=== PATIENT | female | born 1990 | race Two or more races ===

== ENCOUNTER 2017-05-09 10:45 | Emergency (ER) | payer MEDICAID, OTHER ==
[~2017-05-09] VITALS: Ht 170.2 cm; Wt 59.9 kg
--- NOTE | 2017-05-09 11:27 | NUR ---
BIB MOTHER, C/O CP/SOB X 3 DAYS, NAD NOTED, VSS, RESP EVEN AND UNLABORED, PT PUT ON HOSPITAL GOWN AND MONITOR, WAITING FOR MD IWLSON.
[2017-05-09] MEDS ORDERED: ACETAMINOPHEN 325 MG TABLET PO STA (11:46)
[2017-05-09] MEDS ORDERED: ONDANSETRON 4 MG TAB.RAPDIS ONE (11:55)
[2017-05-09] MEDS ORDERED: ACETAMINOPHEN 325 MG TABLET ONE (11:55)
--- NOTE | 2017-05-09 11:59 | NUR ---
PT UNABLE TO SWALLOW THE TYLENOL, DUE TO FEELING NAUSEATED.
[2017-05-09] MEDS ORDERED: ONDANSETRON 4 MG TAB.RAPDIS SL ONE (12:00)
[2017-05-09] MEDS ORDERED: MAG HYDROX/AL HYDROX/SIMETH 30 ML UDC PO ONE (12:30)
[2017-05-09] MEDS ORDERED: LIDOCAINE VISCOUS 2% UD 15 ML UDC MM ONE ×2 (12:30→13:00)
[2017-05-09] MEDS ORDERED: LIDOCAINE VISCOUS 2% UD 15 ML UDC ONE (12:33)
[2017-05-09] MEDS ORDERED: MAGNESIUM HYDROXIDE 30 ML UDC ONE (12:34)
[2017-05-09] MEDS ORDERED: PANTOPRAZOLE 40 MG VIAL IV STA (12:43)
--- NOTE | 2017-05-09 12:45 | NUR ---
PT UNABLE TO KEEP THE LIDOVISCOUS AND MOM DOWN. MADE AWARE.
[2017-05-09] MEDS ORDERED: PANTOPRAZOLE 40 MG VIAL ONE (12:51)
[2017-05-09] MEDS ORDERED: ONDANSETRON HCL/PF 4 MG/2 ML VIAL ONE (12:51)
[2017-05-09] MEDS ORDERED: ONDANSETRON HCL/PF 4 MG/2 ML VIAL IV ONE (13:00)
[2017-05-09 13:21] LABS: BASOPHILS # (AUTO) 0.1 /CMM (0.0-0.2); BASOPHILS % (AUTO) 0.9 % (0.0-2.0); EOSINOPHILS % (AUTO) 0.2 % (0.0-6.0); HEMATOCRIT 44 % (33-45); HEMOGLOBIN 14.9 g/dL (11.5-14.8); LYMPHOCYTES # (AUTO) 2.2 /CMM (0.8-4.8); MEAN CORPUSCULAR HEMOGLOBIN 30 PG (26.0-33.0); MEAN CORPUSCULAR HGB CONC 34 g/dl (31.0-36.0); MEAN CORPUSCULAR VOLUME 87 fL (82-100); MONOCYTES # (AUTO) 0.3 /CMM (0.1-1.30); MONOCYTES % (AUTO) 2.9 % (2.0-12.0); NEUTROPHILS # (AUTO) 9.4 /CMM (1.8-8.9); PLATELET COUNT (AUTO) 420 /CMM (150-450); RED BLOOD CELL COUNT(AUTO) 5.05 MIL/uL (4.0-5.2)
[2017-05-09 13:30] LABS: CALCIUM, SERUM 9.4 mg/dL (8.5-10.1); CREATININE 0.8 mg/dL (0.6-1.3); POTASSIUM 3.7 mmol/L (3.5-5.1)
[2017-05-09 13:36] LABS: ALBUMIN 4.4 g/dL (3.4-5.0); BILIRUBIN,TOTAL 0.3 mg/dL (0.2-1.0); TOTAL PROTEIN, SERUM 8.9 g/dL (6.4-8.2)
--- NOTE | 2017-05-09 13:45 | NUR ---
pt pass swallow test, but still nauseated.
[2017-05-09 14:42] VITALS: BP 122/65
== END 2017-05-09 14:44 | disposition home or self-care (01) ==
LOC: ER 10:52
DX: R07.89 Other chest pain (principal); R11.2 Nausea with vomiting, unspecified; Z88.6 Allergy status to analgesic agent; Z87.442 Personal history of urinary calculi
CPT/HCPCS: 36415; 71045; 80053; 84703; 85025; 96374; 96375; 99285; A4606; C9113; J2405; Q0162; Z7610